=== PATIENT | female | born 1965 | race Caucasian/White ===

== ENCOUNTER → 2020-04-26 | Outpatient (CLI) | payer OTHER | LOC: LAB 12:15 | DX: M53.3 Sacrococcygeal disorders, not elsewhere classified (principal); M54.5 Low back pain; R79.89 Other specified abnormal findings of blood chemistry ==

== ENCOUNTER → 2020-09-10 | Outpatient (CLI) | payer OTHER | LOC: MAMMO 09:51 | DX: Z13.820 Encounter for screening for osteoporosis (principal); M85.80 Other specified disorders of bone density and structure, unspecified site ==

== ENCOUNTER → 2020-09-21 | Outpatient (CLI) | payer OTHER | LOC: LAB 09:14 | DX: E78.2 Mixed hyperlipidemia (principal) ==

== ENCOUNTER → 2021-10-24 | Outpatient (CLI) | payer OTHER ==
[2021-10-24 16:27] LABS: BASO # 0.16 K/mm3 (0.02-0.10); EOS # 0.08 K/mm3 (0.04-0.40); EOS % 1.5 % (1.0-5.0); HEMATOCRIT 42.5 % (37.0-47.0); MEAN CELL VOLUME 90 fl (78-100); MEAN CORPUSCULAR HEMOGLOBIN 30 pg (27-31); MEAN CORPUSCULAR HGB CONC 33 g/dL (33-37); MEAN PLATELET VOLUME 9.7 fl (7.4-10.4); MONO # 0.36 K/mm3 (0.20-0.80); NEU # 2.75 K/mm3 (1.40-6.50); PLATELET COUNT 245 K/mm3 (130-400); RED BLOOD COUNT 4.73 M/mm3 (4.10-5.30); RED CELL DISTRIBUTION WIDTH 13.2 % (11.5-14.5); WHITE BLOOD COUNT 5.3 K/mm3 (4.8-10.8)
[2021-10-24 16:37] LABS: ALBUMIN 4.1 g/dL (3.5-5.0); POTASSIUM 4.5 mmol/L (3.5-5.1)
[2021-10-24 16:38] LABS: CALCIUM 9.9 mg/dL (8.3-10.5)
[2021-10-24 16:39] LABS: TOTAL PROTEIN 6.6 g/dL (6.4-8.3)
[2021-10-24 16:41] LABS: TOTAL BILIRUBIN 0.9 mg/dL (0.2-1.2)
[2021-10-24 17:12] LABS: LYMPH# 1.83 K/mm3 (1.50-4.00)
== END ==
LOC: MAMMO 14:53 → LAB 14:53 → MAMMO 15:00
PROVIDERS: Internal Medicine
DX: Z12.31 Encounter for screening mammogram for malignant neoplasm of breast (principal); Z00.00 Encounter for general adult medical examination without abnormal findings

== ENCOUNTER → 2022-05-12 | Day surgery (SDC) | payer OTHER | LOC: MSO 08:45 | DX: Z12.11 Encounter for screening for malignant neoplasm of colon (principal); K63.89 Other specified diseases of intestine; Z86.010 Personal history of colon polyps | CPT/HCPCS: 00812; J2704; J7120 ==

== ENCOUNTER → 2024-02-04 | Outpatient (CLI) | payer OTHER | LOC: LAB 08:10 | DX: E05.90 Thyrotoxicosis, unspecified without thyrotoxic crisis or storm (principal) ==

== ENCOUNTER → 2024-04-01 | Outpatient (CLI) | payer OTHER | LOC: RAD 10:26 | DX: R59.0 Localized enlarged lymph nodes (principal) ==

== ENCOUNTER → 2024-04-07 | Outpatient (CLI) | payer OTHER ==
[~2024-04-07] MED LIST: Iohexol 300 - 100 ML VIAL IV ONE
[2024-04-07 11:37] LABS: CALCIUM 9.6 mg/dL (8.3-10.5)
== END ==
LOC: RAD 11:10
PROVIDERS: Internal Medicine
DX: R22.1 Localized swelling, mass and lump, neck (principal)
CPT/HCPCS: Q9967

== ENCOUNTER → 2024-06-01 | Outpatient (CLI) | payer OTHER ==
[2024-06-01 11:50] LABS: URINE WBC 0 /hpf (0-3)
[2024-06-01 11:57] LABS: BASO # 0.06 K/mm3 (0.02-0.10); EOS # 0.03 K/mm3 (0.04-0.40); EOS % 0.5 % (1.0-5.0); HEMATOCRIT 44.6 % (37.0-47.0); HEMOGLOBIN 14.7 g/dL (12.5-16.0); LYMPH# 1.38 K/mm3 (1.50-4.00); MEAN CELL VOLUME 90 fl (78-100); MEAN CORPUSCULAR HEMOGLOBIN 30 pg (27-31); MEAN CORPUSCULAR HGB CONC 33 g/dL (33-37); MEAN PLATELET VOLUME 9.4 fl (7.4-10.4); MONO # 0.36 K/mm3 (0.20-0.80); NEU # 3.67 K/mm3 (1.40-6.50); PLATELET COUNT 263 K/mm3 (130-400); RED BLOOD COUNT 4.97 M/mm3 (4.10-5.30); RED CELL DISTRIBUTION WIDTH 14.1 % (11.5-14.5); WHITE BLOOD COUNT 5.6 K/mm3 (4.8-10.8)
[2024-06-01 12:05] LABS: ALBUMIN 4.4 g/dL (3.5-5.0); SODIUM 139 mmol/L (136-145)
[2024-06-01 12:06] LABS: CALCIUM 10.4 mg/dL (8.3-10.5)
[2024-06-01 12:07] LABS: GLUCOSE 102 mg/dL (65-105); TOTAL PROTEIN 7.6 g/dL (6.4-8.3)
[2024-06-01 12:08] LABS: CARBON DIOXIDE 26 mmol/L (22-29)
[2024-06-01 12:13] LABS: AST-SGOT 31 U/L (5-34)
[2024-06-01 12:14] LABS: ALT/SGPT 33 U/L (0-55)
[2024-06-01 12:25] LABS: URINE APPEARANCE CLEAR (CLEAR); URINE BILIRUBIN NEGATIVE (NEGATIVE); URINE BLOOD NEGATIVE (NEGATIVE); URINE COLOR YELLOW (YELLOW); URINE GLUCOSE NEGATIVE (NEGATIVE); URINE KETONE NEGATIVE (NEGATIVE); URINE LEUKOCYTE ESTERASE NEGATIVE (NEGATIVE); URINE NITRATE NEGATIVE (NEGATIVE); URINE PROTEIN(semi-quant) NEGATIVE (NEGATIVE)
== END ==
LOC: LAB 11:38
PROVIDERS: Nurse Practitioner
DX: R10.32 Left lower quadrant pain (principal)

== ENCOUNTER → 2024-06-03 | Outpatient (CLI) | payer OTHER | LOC: RAD 09:30 | DX: R10.32 Left lower quadrant pain (principal) ==

== ENCOUNTER → 2024-06-13 | Outpatient (CLI) | payer OTHER | LOC: RAD 08:43 | DX: R10.32 Left lower quadrant pain (principal) | CPT/HCPCS: Q9967 ==